=== PATIENT | male | born 1960 ===

== ENCOUNTER 2023-02-14 19:22 | Inpatient (IN) | payer MEDICARE, OTHER ==
[~2023-02-14] VITALS: Ht 190.5 cm; Wt 86.2 kg
[2023-02-14] MEDS ORDERED: PANT20TA2 PO (19:39)
[2023-02-14] MEDS ORDERED: METF-494 PO (19:39)
[2023-02-14] MEDS ORDERED: QUET25TA PO (19:39)
[2023-02-14] MEDS ORDERED: ATOR10TA PO (19:39)
[2023-02-14] MEDS ORDERED: LOSA25TA27 PO (19:39)
[2023-02-14] MEDS ORDERED: LIDOCAINE 2% (GLYDO= UROJET) 10 ML JELLY MM ONE (19:45)
[2023-02-14 19:54] LABS: BASOPHILS # (AUTO) 0.2 K/UL (0.0-0.2); BASOPHILS % (AUTO) 1.6 % (0.0-2.0); EOSINOPHILS % (AUTO) 0.4 % (0.0-7.0); HEMATOCRIT 36.1 % (36.7-47.1); HEMOGLOBIN 11.9 g/dL (12.5-16.3); LYMPHOCYTES # (AUTO) 0.9 K/uL (0.8-4.8); LYMPHOCYTES % (AUTO) 7.3 % (20.5-51.5); MEAN CORPUSCULAR HGB CONC 33 g/dL (32.5-36.3); MEAN CORPUSCULAR VOLUME 88.2 fL (73.0-96.2); MONOCYTES # (AUTO) 0.7 K/uL (0.1-1.30); MONOCYTES % (AUTO) 5.9 % (0.0-11.0); NEUTROPHILS % (AUTO) 84.8 % (38.5-71.5); PLATELET COUNT (AUTO) 280 K/uL (152-348); RED BLOOD CELL COUNT(AUTO) 4.09 MIL/uL (4.06-5.63); WHITE BLOOD COUNT (AUTO) 11.8 K/uL (3.6-10.2)
[2023-02-14 20:04] LABS: CALCIUM 9.3 mg/dL (8.5-10.1); CARBON DIOXIDE 28 mmol/L (21-32); CHLORIDE 104 mmol/L (98-107); CREATININE 1.2 mg/dL (0.6-1.3); GLUCOSE 232 mg/dL (74-106); POTASSIUM 3.6 mmol/L (3.5-5.1); SODIUM SERUM 141 mmol/L (136-145); UREA NITROGEN, BLOOD 25 mg/dL (7-18)
[2023-02-14 20:08] LABS: AMMONIA 14 umol/L (11-32); ETHANOL < 3 MG/DL (0-10)
[2023-02-14 20:10] LABS: DIFFERENTIAL COMMENT 1
[2023-02-14 20:13] LABS: ALANINE AMINOTRANSFERASE 37 U/L (16-63); ALBUMIN 3.8 g/dL (3.4-5.0); ALKALINE PHOSPHATASE 107 U/L (50-136); ASPARTATE AMINOTRANSFERASE 57 U/L (15-37); BILIRUBIN,DIRECT 0.2 mg/dL (0.0-0.2); BILIRUBIN,TOTAL 0.5 mg/dL (0.2-1.0)
[2023-02-14 20:17] LABS: THYROID STIMULATING HORMONE 1.527 mIU/mL (0.358-3.740)
[2023-02-14 20:20] LABS: ACETAMINOPHEN < 10.0 ug/mL (10-30)
[2023-02-14 21:47] LABS: *BILIRUBIN,URIN NEGATIVE (NEGATIVE); *BLOOD, URINE 1+ (NEGATIVE); *CLARITY,URINE CLEAR (CLEAR); *COLOR,URINE YELLOW (YELLOW); *KETONES,URINE NEGATIVE (NEGATIVE); *PROTEIN,URINE 3+ (NEGATIVE); *UROBILINOGEN,URINE 0.2 E.U./dl (NORMAL); LEUKOCYTE ESTERASE ,URINE NEGATIVE (NEGATIVE); NITRITE, URINE NEGATIVE (NEGATIVE); PH,URINE 5.5 (5.0-8.0); UGLUCOSE TRACE (NEGATIVE)
[2023-02-14 21:53] LABS: BACTERIA,URINE NONE SEEN /HPF (NONE SEEN); SQUAMOUS EPITHELIAL CELL,UR FEW /HPF (NONE SEEN); URIC ACID CRYSTALS,URINE MODERATE /HPF (NONE SEEN); WBC,URINE 0-3 /HPF (0-3)
[2023-02-14] MEDS ORDERED: LORAZEPAM 0.5 MG TABLET PO PRN (22:45)
[2023-02-14] MEDS ORDERED: DEXTROSE 50% 50 ML DISP.SYRIN IV PRN (22:45)
[2023-02-14] MEDS ORDERED: MAGNESIUM HYDROXIDE 30 ML LIQUID UDC PO PRN (22:45)
[2023-02-14] MEDS ORDERED: ACETAMINOPHEN 325 MG TABLET PO PRN (22:45)
[2023-02-14] MEDS ORDERED: CLONIDINE HCL 0.1 MG TABLET PO PRN (22:45)
[2023-02-14] MEDS ORDERED: ONDANSETRON 4 MG/2 ML VIAL IV PRN (22:45)
[2023-02-15 00:06] VITALS: BP 137/68; TEMP 97.4; O2SAT 95
[2023-02-15] MEDS: IV NS 1000 ML 1,000 ML IV PRN (00:26)
[2023-02-15 04:50] VITALS: BP 165/84; TEMP 97.9; O2SAT 94
[2023-02-15] MEDS: BLOOD SUGAR DIAGNOSTIC 1 EACH STRIP VI SCH ×4 (06:26→22:00)
[2023-02-15 06:50] LABS: BASOPHILS % (AUTO) 0.5 % (0.0-2.0); EOSINOPHILS # (AUTO) 0.1 K/uL (0.0-0.7); EOSINOPHILS % (AUTO) 1.5 % (0.0-7.0); HEMATOCRIT 33.4 % (36.7-47.1); HEMOGLOBIN 11.2 g/dL (12.5-16.3); LYMPHOCYTES # (AUTO) 2.2 K/uL (0.8-4.8); MEAN CORPUSCULAR HEMOGLOBIN 29.5 uug (23.8-33.4); MEAN CORPUSCULAR HGB CONC 34 g/dL (32.5-36.3); MEAN CORPUSCULAR VOLUME 87.6 fL (73.0-96.2); MONOCYTES # (AUTO) 0.9 K/uL (0.1-1.30); MONOCYTES % (AUTO) 9.7 % (0.0-11.0); NEUTROPHILS # (AUTO) 5.8 K/uL (1.8-8.9); NEUTROPHILS % (AUTO) 64.3 % (38.5-71.5); PLATELET COUNT (AUTO) 261 K/uL (152-348); RED BLOOD CELL COUNT(AUTO) 3.81 MIL/uL (4.06-5.63); RED CELL DISTRIBUTION WIDTH 15.1 % (12.1-16.2)
[2023-02-15 07:10] LABS: DIFFERENTIAL COMMENT 1
[2023-02-15 07:11] LABS: CREATININE 0.8 mg/dL (0.6-1.3); MAGNESIUM 1.7 mg/dL (1.8-2.4); PHOSPHOROUS 3.5 mg/dL (2.5-4.9); POTASSIUM 3.6 mmol/L (3.5-5.1)
[2023-02-15 08:00] VITALS: BP 149/82; TEMP 98.1; O2SAT 97
[2023-02-15] MEDS: INSULIN REGULAR, HUMAN 300 UNITS/3 ML VIAL SQ PRN ×3 (08:34→22:13)
[2023-02-15] MEDS: QUETIAPINE FUMARATE 25 MG TABLET PO SCH (09:22)
[2023-02-15] MEDS: LOSARTAN POTASSIUM 25 MG TABLET PO SCH (09:25)
[2023-02-15 11:54] VITALS: BP 132/75; TEMP 98.3; O2SAT 98
[2023-02-15] MEDS ORDERED: MAGNESIUM OXIDE 400 MG TABLET PO ONE (13:20)
[2023-02-15 15:42] VITALS: BP 153/83; TEMP 98.6; O2SAT 97
[2023-02-15] MEDS: INSULIN REGULAR, HUMAN 300 UNIT/3 ML VIAL SQ PRN (17:29)
[2023-02-15 19:30] VITALS: BP 156/78; TEMP 98.1; O2SAT 97
[2023-02-15] MEDS: ATORVASTATIN 10 MG TABLET PO SCH (22:03)
[2023-02-16] MEDS: IV NS 1000 ML 1,000 ML IV PRN (00:47)
[2023-02-16 06:00] VITALS: BP 153/75; TEMP 97.3; O2SAT 97
[2023-02-16 07:28] LABS: BASOPHILS # (AUTO) 0.1 K/UL (0.0-0.2); BASOPHILS % (AUTO) 0.6 % (0.0-2.0); EOSINOPHILS # (AUTO) 0.2 K/uL (0.0-0.7); EOSINOPHILS % (AUTO) 2.5 % (0.0-7.0); HEMATOCRIT 32.9 % (36.7-47.1); HEMOGLOBIN 11.1 g/dL (12.5-16.3); LYMPHOCYTES # (AUTO) 2.2 K/uL (0.8-4.8); LYMPHOCYTES % (AUTO) 23.2 % (20.5-51.5); MEAN CORPUSCULAR HEMOGLOBIN 29.7 uug (23.8-33.4); MEAN CORPUSCULAR HGB CONC 34 g/dL (32.5-36.3); MONOCYTES # (AUTO) 0.8 K/uL (0.1-1.30); MONOCYTES % (AUTO) 8.8 % (0.0-11.0); NEUTROPHILS % (AUTO) 64.9 % (38.5-71.5); PLATELET COUNT (AUTO) 252 K/uL (152-348); RED BLOOD CELL COUNT(AUTO) 3.74 MIL/uL (4.06-5.63); RED CELL DISTRIBUTION WIDTH 14.5 % (12.1-16.2); WHITE BLOOD COUNT (AUTO) 9.3 K/uL (3.6-10.2)
[2023-02-16 08:03] LABS: CALCIUM 8.5 mg/dL (8.5-10.1); CREATININE 0.9 mg/dL (0.6-1.3); MAGNESIUM 1.4 mg/dL (1.8-2.4); POTASSIUM 3.6 mmol/L (3.5-5.1)
[2023-02-16] MEDS: BLOOD SUGAR DIAGNOSTIC 1 EACH STRIP VI SCH ×4 (08:08→21:16)
[2023-02-16] MEDS: QUETIAPINE FUMARATE 25 MG TABLET PO SCH (08:18)
[2023-02-16] MEDS: LOSARTAN POTASSIUM 25 MG TABLET PO SCH (08:18)
[2023-02-16] MEDS: INSULIN REGULAR, HUMAN 300 UNITS/3 ML VIAL SQ PRN ×2 (08:19→21:18)
[2023-02-16] MEDS: MAGNESIUM OXIDE 400 MG TABLET PO SCH ×6 (10:51→20:59)
[2023-02-16] MEDS: INSULIN REGULAR, HUMAN 300 UNIT/3 ML VIAL SQ PRN (12:19)
[2023-02-16 20:22] VITALS: BP 147/77; TEMP 98.3; O2SAT 95
[2023-02-16] MEDS: ATORVASTATIN 10 MG TABLET PO SCH (20:59)
[2023-02-17 04:55] VITALS: BP 138/70; TEMP 98.3; O2SAT 96
[2023-02-17] MEDS: BLOOD SUGAR DIAGNOSTIC 1 EACH STRIP VI SCH (06:19)
[2023-02-17 07:49] LABS: CALCIUM 8.6 mg/dL (8.5-10.1); CREATININE 0.9 mg/dL (0.6-1.3); MAGNESIUM 1.8 mg/dL (1.8-2.4); POTASSIUM 4.2 mmol/L (3.5-5.1)
[2023-02-17] MEDS: QUETIAPINE FUMARATE 25 MG TABLET PO SCH (08:15)
[2023-02-17 08:21] VITALS: BP 144/77
[2023-02-17] MEDS: LOSARTAN POTASSIUM 25 MG TABLET PO SCH (08:21)
[2023-02-17] MEDS: INSULIN REGULAR, HUMAN 300 UNIT/3 ML VIAL SQ PRN (08:28)
== END 2023-02-17 11:05 | DRG 640 ==
LOC: ER 19:25 → TELE3 23:28 → MEDSURG3 02-15 00:17
PROVIDERS: ADMIT Internal Medicine; ATTEND Internal Medicine
DX: E86.0 Dehydration (principal); G93.41 Metabolic encephalopathy; F01.52 Vascular dementia, unspecified severity, with psychotic disturbance; F01.518 Vascular dementia, unspecified severity, with other behavioral disturbance; I69.320 Aphasia following cerebral infarction; I10 Essential (primary) hypertension; E11.9 Type 2 diabetes mellitus without complications; R79.89 Other specified abnormal findings of blood chemistry; E78.5 Hyperlipidemia, unspecified; K21.9 Gastro-esophageal reflux disease without esophagitis; I67.2 Cerebral atherosclerosis; I69.319 Unspecified symptoms and signs involving cognitive functions following cerebral infarction; Z91.83 Wandering in diseases classified elsewhere; Z79.84 Long term (current) use of oral hypoglycemic drugs; Z88.8 Allergy status to other drugs, medicaments and biological substances; Z79.899 Other long term (current) drug therapy
CPT/HCPCS: 36415; 70450; 71045; 83735; 84100; 84443; 84484; 85025; 93005; A6209; G0378; G0480; J1815; J7040